=== PATIENT | female | born 1955 | race Caucasian/White ===

== ENCOUNTER 2019-03-01 13:14 | Emergency (ER) | payer OTHER ==
[~2019-03-01] VITALS: Ht 160 cm; Wt 88.5 kg
[~2019-03-01 13:14] MED LIST: AMOXICILLIN/POTASSIU; ATENOLOL; AUGMENTIN 875-1 EACH PO; BENICAR; FLONASE; MUCINEX TA600 MG/TA2 PO; NEXIUM40 MG; PERCOCET 5-3251 EACH PO; PHENTERMINE HCL8 MG; PROGESTERO50 MG/1 M3 IM; RESTLESS LEG MED; STRATTERA; VENTOLIN HFA 1818 GM INH; VESICARE 5 MG TA5 MG PO; WELLBUTRIN XL150 M1; ZOCOR20 MG PO; ZOFRAN4 MG PO; [UNRECOGNIZED DRUG - REMARK]
[2019-03-01] MEDS ORDERED: CELEXA 10 MG TA10 M1 PO (13:23)
[2019-03-01] MEDS ORDERED: VYVANSE20 MG PO (13:23)
[2019-03-01] MEDS ORDERED: NEURONTIN 300M300 M2 PO (13:24)
[2019-03-01] MEDS ORDERED: CRESTOR10 MG PO (13:24)
[2019-03-01] MEDS ORDERED: CARDIA (13:25)
[2019-03-01 13:55] LABS: INFLUENZA A ANTIGEN Negative (Negative); INFLUENZA B ANTIGEN Negative (Negative)
[2019-03-01 14:08] LABS: ABSOLUTE EOSINOPHILS 0.3 thou/uL (0.0-0.7); ABSOLUTE LYMPHOCYTES 1.4 thou/uL (0.8-5.3); ABSOLUTE MONOCYTES 0.6 thou/uL (0.0-1.2); BASOPHILS 0.4 %; EOSINOPHILS 3.7 %; HEMATOCRIT 39.4 % (37.0-47.0); HEMOGLOBIN 13.5 gm/dL (12.0-15.0); MCH 32.6 pg (26.0-34.0); MCHC 34.3 g/dL (28.0-37.0); MCV 95.1 fL (80.0-100.0); MONOCYTES 8.3 %; MPV 8.7 fl. (7.2-11.1); NUCLEATED RBCS 0 /100WBC; PLATELET COUNT* 224 thou/uL (150-400); POLYS 68.6 %; RBC 4.15 mil/uL (4.20-5.00); RDW-CV 13.2 % (10.5-14.5); WBC 7.3 thou/uL (4.0-11.0)
[2019-03-01 14:17] LABS: CREATININE 0.8 mg/dL (0.6-1.3); POTASSIUM 3.8 mmol/L (3.5-5.1)
[2019-03-01 14:28] LABS: ALBUMIN 3.4 g/dL (3.4-5.0); TOTAL BILIRUBIN 0.3 mg/dL (<0.1-1.0); TOTAL PROTEIN 6.7 g/dL (6.4-8.2)
[2019-03-01] MEDS ORDERED: BUTALB-APAP-CA1 EACH PO (15:19)
[2019-03-01] MEDS ORDERED: VENTOLIN HFA 1818 GM INH (15:19)
[2019-03-01] MEDS ORDERED: AUGMENTIN 875-1 EACH PO (15:19)
[2019-03-01 15:35] VITALS: BP 142/70
--- NOTE | 2019-03-04 14:58 | EKG ---
[place] [address] ELECTROCARDIOGRAM REPORT Name: YUDELKA SMALL Room: [facility]#: [id number] Admission: 03/01/19 Attend Phys: Discharge: 03/01/19 Date of : 55 Report #: [id number] THIS REPORT FOR: //name// [facility] ED Test Date: 2019-03-01 Test Time: 13:31:10 Pat Name: YUDELKA ALBRECHT Department: Room: Gender: F Trousseau Consultant: : [id number] Requested By: Libia Pino Order Number: [id number] MD: Serg Encarnacion Measurements Intervals [place] Rate: 76 P: -3 RI: 224 QRS: 15 QRSD: 84 T: 39 QT: 391 QTc: 440 Interpretive Statements Sinus rhythm Prolonged RI interval Low voltage, precordial leads Compared to ECG 08/14/2016 12:56:04 No significant changes Electronically Signed On 03-04-2019 14:58:12 [employer] by Serg Encarnacion [email or web address] <ELECTRONICALLY SIGNED> By: Serg Encarnacion MD, [facility] 03/04/19 1458 133 30 Serg Encarnacion MD, [facility] /EPI
== END 2019-03-01 15:37 | disposition home or self-care (01) ==
LOC: M.ERS 13:14
PROVIDERS: Nurse Practitioner Family
DX: J20.9 Acute bronchitis, unspecified (principal); J01.00 Acute maxillary sinusitis, unspecified; F90.9 Attention-deficit hyperactivity disorder, unspecified type; Z88.6 Allergy status to analgesic agent; Z90.711 Acquired absence of uterus with remaining cervical stump; Z88.5 Allergy status to narcotic agent; Z88.1 Allergy status to other antibiotic agents; Z88.8 Allergy status to other drugs, medicaments and biological substances